=== PATIENT | female | born 1975 | race Caucasian/White ===

== ENCOUNTER → 2021-10-06 | Day surgery (SDC) | payer OTHER ==
[~2021-10-06] MED LIST: HYDROCHLOROTH12.5 MG PO; ZOFRAN ODT 4 MG4 MG GT
== END | disposition home or self-care (01) ==
LOC: OR 06:36
DX: K29.50 Unspecified chronic gastritis without bleeding (principal); K31.9 Disease of stomach and duodenum, unspecified; I10 Essential (primary) hypertension; E78.00 Pure hypercholesterolemia, unspecified; E66.01 Morbid (severe) obesity due to excess calories; Z68.41 Body mass index [BMI] 40.0-44.9, adult; Z20.822 Contact with and (suspected) exposure to COVID-19
CPT/HCPCS: J2001; J2704; J7040

== ENCOUNTER → 2021-10-13 | Outpatient (CLI) | payer OTHER | LOC: NM 07:24 | DX: R10.11 Right upper quadrant pain (principal) | CPT/HCPCS: 36415; 78227; 80076; A9537; J2805 ==